=== PATIENT | female | born 2000 | race Caucasian/White ===

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

== ENCOUNTER → 2019-01-12 | Outpatient (CLI) | payer BC, OTHER ==
[2019-01-12 13:21] LABS: HEMATOCRIT 35.8 % (36.0-47.0); HEMOGLOBIN 11.8 g/dl (12.0-15.5); MEAN CORPUSCULAR HEMOGLOBIN 27.3 pg (27.0-33.0); MEAN CORPUSCULAR VOLUME 82.7 fl (80.0-96.0); PLATELET COUNT, AUTOMATED 163 10^3/uL (150-450); RED BLOOD COUNT 4.33 10^6/uL (4.00-5.40)
[2019-01-12 13:56] LABS: ALT/SGPT 20 U/L (12-78); BILIRUBIN,TOTAL 0.3 MG/DL (0.2-1.0); CREATININE FOR GFR 0.46 MG/DL (0.55-1.30); LDH LACTATE DEHYDROGENASE 163 U/L (84-246); URIC ACID 7.1 MG/DL (2.6-6.0)
[2019-01-12 19:08] LABS: TOTAL PROTEIN,RANDOM URINE 40.9 MG/DL (0.0-12.0)
== END ==
LOC: M SMT 10:40
PROVIDERS: ATTEND Specialist
DX: O10.012 Pre-existing essential hypertension complicating pregnancy, second trimester (principal)

== ENCOUNTER 2019-01-28 17:10 | Inpatient (IN) | payer BC, OTHER ==
[2019-01-28] VITALS (18 sets, daily range): BP systolic 118–194; BP diastolic 56–101
[~2019-01-28] VITALS: Ht 170.2 cm; Wt 157.1 kg
[2019-01-28] MEDS ORDERED: ACETAMINOPHEN 500 MG TAB PO ONE (18:15)
[2019-01-28] MEDS ORDERED: NIFEdipine 10 MG CAP PO ONE (18:15)
[2019-01-28] MEDS ORDERED: PRENTAB9 PO (18:33)
[2019-01-28 18:44] LABS: HEMATOCRIT 37.5 % (36.0-47.0); HEMOGLOBIN 12.5 g/dl (12.0-15.5); MEAN CORPUSCULAR HEMOGLOBIN 27.7 pg (27.0-33.0); MEAN CORPUSCULAR HGB CONC 33.3 g/dl (32.0-36.5); PLATELET COUNT, AUTOMATED 196 10^3/uL (150-450); RED BLOOD COUNT 4.52 10^6/uL (4.00-5.40); WHITE BLOOD COUNT 10.8 10^3/uL (4.0-10.0)
[2019-01-28 19:09] LABS: INR 0.98; PROTHROMBIN TIME 13.1 SECONDS (12.1-14.4)
[2019-01-28 19:10] LABS: PARTIAL THROMBOPLASTIN TIME 28.5 SECONDS (25.4-37.6)
[2019-01-28 19:12] LABS: ALBUMIN 2.5 GM/DL (3.2-5.2); ALT/SGPT 12 U/L (12-78); BILIRUBIN,TOTAL 0.3 MG/DL (0.2-1.0); BLOOD UREA NITROGEN 9 MG/DL (7-18); CALCIUM LEVEL 8.7 MG/DL (8.5-10.1); CARBON DIOXIDE LEVEL 23 MEQ/L (21-32); CHLORIDE LEVEL 107 MEQ/L (98-107); CREATININE FOR GFR 0.48 MG/DL (0.55-1.30); GLUCOSE, FASTING 70 MG/DL (70-100); LDH LACTATE DEHYDROGENASE 157 U/L (84-246); POTASSIUM SERUM 4.5 MEQ/L (3.5-5.1); SODIUM LEVEL 139 MEQ/L (136-145); TOTAL PROTEIN 5.9 GM/DL (6.4-8.2); URIC ACID 6.6 MG/DL (2.6-6.0)
[2019-01-28 19:28] LABS: AMPHETAMINES URINE REFLEX NEGATIVE (NEGATIVE); BARBITURATES URINE REFLEX NEGATIVE (NEGATIVE); BENZODIAZEPINES URINE REFLEX NEGATIVE (NEGATIVE); CANNABINOIDS URINE REFLEX NEGATIVE (NEGATIVE); COCAINE METABOLITE URINE REFLE NEGATIVE (NEGATIVE); CREATININE,RANDOM URINE 17.1 MG/DL; METHADONE URINE REFLEX NEGATIVE (NEGATIVE); OPIATES URINE REFLEX NEGATIVE (NEGATIVE); PHENCYCLIDINE URINE REFLEX NEGATIVE (NEGATIVE); TOTAL PROTEIN,RANDOM URINE 70.2 MG/DL (0.0-12.0)
[2019-01-28] MEDS ORDERED: LABETALOL HCL 100 MG/20 ML VIAL IV STA (20:12)
[2019-01-28] MEDS ORDERED: LABETALOL 200 MG TAB PO ONE (20:15)
--- NOTE | 2019-01-28 20:25 | NUR ---
L&D H&P HPI: 18 year old at 32+5 weeks estimated gestation. Expected date of confinement: 03/20/19. dated by first trimester ultrasound. Presents to day with complaint of CLOUD and elevated BP at home. CHTN, but not taking any antihypertensive. Denies scotomata, RUQ pain, sob, cp. Denies vaginal bleeding, loss of fluid, or uterine contractions. Reports regular movement. course c/b: Morbid obesity CHTN (no meds) labs: Blood type Aneg, Rhogam given: 01/20/19, antibody screen : +anti-D, rubella immune, VDRL nonreactive , hepatitis B surface antigen negative, HIV negative, hepatitis C antibody negative, GC/CT negative, aneuploidy/maternal serum screening: not done, 1 hour glucose challenge test: 96, [3 hour glucose tolerance test:] GBS [negative/positive] Radiology/OB US: no anomalies or placental abnormalities detected. 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 G2, term , 7lbs 12oz, Nov 2016 Social history: former smoker. no t/e/d. Family history: seizures, heart disease Objective Vitals: Hypertensive (severe range; see [employer]), normal heart rate, afebrile Heart: Regular rate and rhythm. No murmurs, rubs or gallops. Lungs: Clear to auscultation bilaterally. No wheezes, crackles, rales or rhonchi. Abdomen: Uterine fundal height consistent with dates. No guarding or rebound tenderness. Extremities: No clubbing, cyanosis or edema. Normal deep tendon reflexes. Sterile vaginal exam: deferred External monitoring: heart rate category 1 Tocodynamometer: contractions not present Assessment/Plan 18 year old at 32+5 weeks gestation. Diagnosis: CHTN w/ superimposed pre-e. Reassuring and maternal status. -Close observation for severe features -Start antihypertensive therapy; Nifedipine 10mg PO and IV labetalol for acute control, followed by PO Labetalol -Start betamethasone course for anticipated delivery becoming indicated -Mg SO4 if pt's clinical status worsens. -EFM / [place] -Labs ordered (Pr/Cr ratio, CBC, CMP, uric acid, LDH, coags) Dr. Irineo Gonzalez, DO, FACOG
[2019-01-28] MEDS: BETAMETHASONE SOLUSPAN 6MG/ML INJ 5ML (J0702) IM SCH (20:44)
[2019-01-29] VITALS (20 sets, daily range): BP systolic 121–170; BP diastolic 57–85
[2019-01-29] MEDS: LABETALOL 200 MG TAB PO SCH ×2 (09:01→20:59)
--- NOTE | 2019-01-29 14:02 | IPNPDOC ---
Text Note Date of Service The patient was seen on 01/29/19. NOTE No complaints. BP well controlled on labetalol 200mg BID NST Cat I, difficult to trace due to activity and maternal habitus Pt status reviewed with Dr Vasques. Repeat betamethasone injection this evening. If remains well controlled on PO meds, discharge in am VS,Fishbone, I+O VS, Fishbone, I+O Laboratory Tests 01/28/19 18:34 Red Blood Count 4.52, Mean Corpuscular Volume 83.0, Mean Corpuscular Hemoglobin 27.7, Mean Corpuscular Hemoglobin Concent 33.3, Red Cell Distribution Width 13.5, Calcium Level 8.7, Aspartate Amino Transf (AST/SGOT) 10, Alanine Aminotransferase (ALT/SGPT) 12, Lactate Dehydrogenase 157, Alkaline Phosphatase 155 H, Total Bilirubin 0.3, Uric Acid 6.6 H, Total Protein 5.9 L, Albumin 2.5 L Vital Signs Date Time Temp Pulse Resp B/P (MAP) Pulse Ox O2 Delivery O2 Flow Rate FiO2 01/29/19 12:01 98.6 85 18 145/72 (96) Anabel Rojas CNM Jan 29, 2019 14:02
[2019-01-29] MEDS ORDERED: SODIUM CHLORIDE NASAL 0.65% SPRAY BTL (OCEAN) PRN (20:15)
[2019-01-29] MEDS: BETAMETHASONE SOLUSPAN 6MG/ML INJ 5ML (J0702) IM SCH (20:57)
[2019-01-29] MEDS: OXYMETAZOLINE NASAL SPRAY (AFRIN) SCH (21:00)
[2019-01-30] VITALS (13 sets, daily range): BP systolic 136–181; BP diastolic 65–102
--- NOTE | 2019-01-30 08:22 | NUR ---
Progress note S: No complaints O: SK=568/66 P=75 AF NAD Abd: NT, gravid FHT: Cat. .I [place]: rare ext: NT, 1+ edema A/P 18 yo at 33 0/7 weeks with preeclampsia Stable on Labetalol 200 mg po BID Check ultrasound today for growth/TWILA GBS culture today in anticipation of early delivery If reassuring testing today, can discharge home with close follow-up Bari Vasques MD
[2019-01-30] MEDS: LABETALOL 200 MG TAB PO SCH (09:33)
--- NOTE | 2019-01-30 10:46 | REP ---
OB ULTRASOUND: Real-time sonographic evaluation of the gravid uterus is performed. There is a single living intrauterine gestation. The estimated gestational age is 33 weeks 6 days based on LMP EDC 03/21/2019. Today's measurements indicate somewhat suboptimal growth. BPD 75 mm = 30 weeks 1 day, at the 10th percentile. HC 281 mm = 30 weeks 6 days, at the 19th percentile. AC 264 mm = 30 weeks 4 day, at the 15th percentile. Femur length 59 mm = 30 weeks 5 days, at the 17th percentile. HC/AC ratio 1.06 within normal range. Estimated weight 1599 grams, less than 3rd percentile. Cervix is closed and measures 3.5 cm in length. heart rate 139 beats per minute. Amniotic fluid appears oligohydramnios with TWILA 4.6 below normal range of 8.3 to 24.5, SD ratio 3.51 is above normal range of 2.05-3.05. RI 0.72 is within normal range of 0.59 to 0.75. Visualized anatomy today includes stomach, cord insertion, three vessel cord, kidneys, bladder, and spine which are all grossly unremarkable. position is vertex. Placenta is anterior and to the right, grade 3 with no evidence of previa or abruption. A portion of the placenta appears mildly thickened at 4.6 cm in AP dimension. motion and breathing are observed. Electronically Signed by Dontae Zepeda MD 01/30/2019 06:55 P
[2019-01-30] MEDS: OXYMETAZOLINE NASAL SPRAY (AFRIN) SCH (21:00)
[2019-01-30] MEDS ORDERED: LABETALOL 100 MG TAB PO SCH (21:00)
[2019-01-31] VITALS (7 sets, daily range): BP systolic 139–171; BP diastolic 67–87
[2019-01-31] MEDS: OXYMETAZOLINE NASAL SPRAY (AFRIN) SCH ×2 (09:00→21:16)
[2019-01-31] MEDS: LABETALOL 200 MG TAB PO SCH ×2 (09:06→21:19)
--- NOTE | 2019-01-31 09:42 | NUR ---
Progress note S: c/o heart burn O: BH=009/76 P=86 AF NAD Abd: NT, gravid FHT: Category one toco: none Ext: 1+ edema LE A/P 18 yo at 33 1/7 weeks with preeclampsia, IUGR, oligohydramnios Labetalol increased to 400 mg BID Continue in hospital bed rest Plan delivery at 34 weeks for the above indications Can deliver earlier for worsening disease or signs of compromise Try Pepcid for heartburn Bari Vasques MD
[2019-01-31] MEDS: FAMOTIDINE 20 MG TAB PO SCH ×2 (09:45→21:16)
[2019-02-01] VITALS (31 sets, daily range): BP systolic 124–194; BP diastolic 59–104
--- NOTE | 2019-02-01 06:28 | NUR ---
Progress note S: no complaints O: JJ=452/84 P=78 AF NAD Abd: NT, gravid FHT: Category one toco: none ext: NT, 1+ edema A/P 18 yo G2P@ at 33 2/7 weeks with preeclampsia, IUGR, oligohydramnios Continue in hospital bedrest Increase Labetalol (currently at 400 mg BID) Will discuss senior care goals today for delivery Bari Vasques MD
[2019-02-01] MEDS: OXYMETAZOLINE NASAL SPRAY (AFRIN) SCH ×2 (09:00→21:00)
[2019-02-01] MEDS: FAMOTIDINE 20 MG TAB PO SCH ×2 (09:11→21:12)
[2019-02-01] MEDS: LABETALOL 200 MG TAB PO SCH ×3 (09:11→21:12)
[2019-02-01] MEDS: PRENATAL VITAMINS CHEWABLE TABLET PO SCH (09:11)
[2019-02-01 10:44] LABS: RUBELLA IgG QUALITATIVE IMMUNE (IMMUNE)
[2019-02-01 10:45] LABS: HEMATOCRIT 37.6 % (36.0-47.0); HEMOGLOBIN 12.1 g/dl (12.0-15.5); MEAN CORPUSCULAR HEMOGLOBIN 27.1 pg (27.0-33.0); MEAN CORPUSCULAR HGB CONC 32.2 g/dl (32.0-36.5); MEAN CORPUSCULAR VOLUME 84.3 fl (80.0-96.0); PLATELET COUNT, AUTOMATED 199 10^3/uL (150-450); RED BLOOD COUNT 4.46 10^6/uL (4.00-5.40); WHITE BLOOD COUNT 15.3 10^3/uL (4.0-10.0)
[2019-02-01 11:09] LABS: ALT/SGPT 12 U/L (12-78); BILIRUBIN,TOTAL 0.3 MG/DL (0.2-1.0); LDH LACTATE DEHYDROGENASE 156 U/L (84-246); URIC ACID 6.6 MG/DL (2.6-6.0)
[2019-02-01] MEDS ORDERED: BICITRA 30ML SOLN UDC PO ONE (11:45)
[2019-02-01] MEDS: ACETAMINOPHEN 500 MG TAB PO PRN ×2 (11:45→21:27)
[2019-02-01] MEDS ORDERED: hydrALAZINE INJ 20 MG/ML VIAL IV STA ×2 (13:36→14:10)
--- NOTE | 2019-02-01 13:53 | IPNPDOC ---
Text Note Date of Service The patient was seen on 02/01/19. NOTE Subjective: Patient is a at 33.1 weeks gestation. She reported having a headache this morning that was resolved with acetaminophen and increased epigastric pain that is no longer controlled with Pepcid or tums. She was given Bicitra this morning that did not improve her heartburn. Patient was placed on Labetalol 400 mg TID this weekend. She reports active movement. She denies leaking of fluid or contractions. Objective: Labs and VS: see below. Assessment: IUP at 33.1 weeks gestation; preeclampsia with severe features; oligohydramnios; IUGR Plan: Dr. Gonzalez consulted. BP's reviewed and symptoms reviewed. Plan of care obtained for patient. Will start IOL due to severe features, oligohydramnios, IUGR and increasing BP's. Dr. Muñoz (electronic sensing equipment assembler) notified of patient being induced. Hydralazine ordered via IV. Will consider Magnesium for seizure prote ction if BP's don't improve or headache occurs. Plan of care reviewed with patient. VS,Fishbone, I+O VS, Fishbone, I+O Laboratory Tests 02/01/19 10:35 Red Blood Count 4.46, Mean Corpuscular Volume 84.3, Mean Corpuscular Hemoglobin 27.1, Mean Corpuscular Hemoglobin Concent 32.2, Red Cell Distribution Width 14.0, Aspartate Amino Transf (AST/SGOT) 9, Alanine Aminotransferase (ALT/SGPT) 12, Lactate Dehydrogenase 156, Total Bilirubin 0.3, Uric Acid 6.6 H Vital Signs Date Time Temp Pulse Resp B/P (MAP) Pulse Ox O2 Delivery O2 Flow Rate FiO2 02/01/19 12:45 85 18 186/104 (131) 02/01/19 10:00 96.5 01/31/19 21:15 97 I&O- Last 24 Hours up to 6 AM 02/01/19 06:00 Intake Total 3749 ml Output Total 2150 ml Balance 1599 ml NIKKI HARMON CNM Feb 01, 2019 13:53
[2019-02-01] MEDS ORDERED: MAG Sulf (OBGYN) 20GM/500ML 20,000 MG in APPROPRIATE DILUENT 1 EA IV SCH (14:00)
[2019-02-01] MEDS ORDERED: MAGNESIUM *L&D* 4 GM/100 ML BAG (40MG/ML) (J3475) IV ONE (14:15)
[2019-02-01] MEDS ORDERED: OXYTOCIN DRIP 30 UNITS in APPROPRIATE DILUENT 1 EA IV SCH (15:30)
[2019-02-01] MEDS: LR 1,000 ML IV SCH (16:05)
--- NOTE | 2019-02-01 19:26 | IPNPDOC ---
Obstetrical Progress Note Date of Service Feb 01, 2019 Subjective Patient reports that her epigastric pain has improved since the Magnesium has started. She currently denies a headache or visual changes. Objective Vital Signs Date Time Temp Pulse Resp B/P (MAP) Pulse Ox O2 Delivery O2 Flow Rate FiO2 02/01/19 18:38 82 18 141/82 (101) 02/01/19 17:08 98.6 01/31/19 21:15 97 Vital Signs Label Value Date Time Pulse 85 02/01/19 1245 Respiratory Rate 18 bpm 02/01/19 1245 Blood Pressure Assessment 186/104 (131) 02/01/19 1245 Source Automatic Cuff (NIBP) Pulse 81 02/01/19 1315 Blood Pressure Assessment 194/92 (126) 02/01/19 1315 Source Automatic Cuff (NIBP) Pulse 95 02/01/19 1416 Respiratory Rate 18 bpm 02/01/19 1416 Blood Pressure Assessment 166/77 (106) 02/01/19 1416 Source Automatic Cuff (NIBP) Pulse 92 02/01/19 1421 Respiratory Rate 18 bpm 02/01/19 1421 Blood Pressure Assessment 171/79 (109) 02/01/19 1421 Source Automatic Cuff (NIBP) Pulse 90 02/01/19 1426 Respiratory Rate 18 bpm 02/01/19 1426 Blood Pressure Assessment 159/73 (101) 02/01/19 1426 Source Automatic Cuff (NIBP) Assessment Heart Rate (FHR): 120 Variability: Moderate Accelerations: Positive Decelerations: None Heart Rate Tracing: Category I Tocometer Contractions: No Sterile Vaginal Examination Dilation: 1cm Effacement (%): other (thick) Station: -3 Cervical Consistency: Soft Cervical Position: Posterior Postion/Presentation: Cephalic presentation Assessment and Plan Age: 18 : 2 Term: 1 Pre-term: 0 Abortions: 0 Livin EGA at Admission: 33.2 Additional Comments Patient was given a second dose of hydralazine that worked well to decrease her BP. After consulting with again she was started on Magnesium sulfate. Reviewed induction process with patient. Sono confirms cephalic presentation, which was done at the bedside. We will start her on IV Pitocin due to oligohydramnios and IUGR. Consider mad[place] bulb. NIKKI HARMON CNM Feb 01, 2019 19:26
--- NOTE | 2019-02-01 20:06 | IPNPDOC ---
Obstetrical Progress Note Date of Service Feb 01, 2019 Subjective Patient reports she can feel some of her contractions. Objective Vital Signs Date Time Temp Pulse Resp B/P (MAP) Pulse Ox O2 Delivery O2 Flow Rate FiO2 02/01/19 18:38 82 18 141/82 (101) 02/01/19 17:08 98.6 01/31/19 21:15 97 Assessment Heart Rate (FHR): 120 Variability: Moderate Accelerations: Positive Decelerations: None Heart Rate Tracing: Category I Tocometer Contractions: Yes Sterile Vaginal Examination Dilation: 1cm Effacement (%): 50% Station: -3 Cervical Consistency: Soft Cervical Position: Posterior Postion/Presentation: Cephalic presentation Assessment and Plan Age: 18 : 3 Term: 1 Pre-term: 0 Abortions: 1 Livin EGA at Admission: 33.2 Status: Reassuring Group B Streptococcus: Negative Anticipate: Vaginal Delivery Additional Comments Speculum used to place madrid bulb. [place] bulb successfully placed with 60/40 of normal saline. Patient tolerated well. Pitocin at 12 mu/min. Patient reports she can feel some contractions. NIKKI HARMON CNM Feb 01, 2019 20:06
[2019-02-01] MEDS ORDERED: PROMETHAZINE INJ 25 MG/ML VIAL (J2550) IV ONE (21:30)
[2019-02-01] MEDS ORDERED: BUTORPHANOL 2 MG/ML INJ (J0595) IV ONE (21:30)
[2019-02-02] VITALS (56 sets, daily range): BP systolic 107–178; BP diastolic 53–90
[2019-02-02] MEDS: LR 1,000 ML IV SCH ×2 (03:11→10:21)
[2019-02-02] MEDS: MAG Sulf (OBGYN) 20GM/500ML 20,000 MG in APPROPRIATE DILUENT 1 EA IV SCH ×3 (07:00→20:46)
[2019-02-02] MEDS: PRENATAL VITAMINS CHEWABLE TABLET PO SCH ×2 (07:41→07:44)
[2019-02-02] MEDS: FAMOTIDINE 20 MG TAB PO SCH ×2 (07:41→20:52)
[2019-02-02] MEDS: ACETAMINOPHEN 500 MG TAB PO PRN ×2 (07:42→18:37)
[2019-02-02] MEDS: OXYMETAZOLINE NASAL SPRAY (AFRIN) SCH ×2 (09:00→20:53)
[2019-02-02] MEDS ORDERED: FENTANYL 2MCG/ML ROPIVACAINE 0.2% IN 0.9% NACL 100ML IVBAG As Ordered ONE (10:14)
[2019-02-02 11:01] LABS: HEMATOCRIT 38.4 % (36.0-47.0); HEMOGLOBIN 12.4 g/dl (12.0-15.5); MEAN CORPUSCULAR HEMOGLOBIN 27.3 pg (27.0-33.0); MEAN CORPUSCULAR HGB CONC 32.3 g/dl (32.0-36.5); MEAN CORPUSCULAR VOLUME 84.6 fl (80.0-96.0); PLATELET COUNT, AUTOMATED 197 10^3/uL (150-450); RED BLOOD COUNT 4.54 10^6/uL (4.00-5.40); WHITE BLOOD COUNT 14.8 10^3/uL (4.0-10.0)
[2019-02-02] MEDS ORDERED: LACTATED RINGER'S 1000 ML IV PRN (12:45)
[2019-02-02] MEDS ORDERED: NALOXONE INJ 0.4 MG/1 ML VIAL (J2310) IV PRN (12:45)
[2019-02-02] MEDS ORDERED: EPIDURAL/PCA KEYS XX PRN (12:45)
[2019-02-02] MEDS ORDERED: diphenhydrAMINE INJ 50MG/ML VIAL (J1200) IV PRN (12:45)
[2019-02-02] MEDS ORDERED: REFRIGERATOR IV KEYS XX PRN (12:45)
[2019-02-02] MEDS ORDERED: ePHEDrine SULFATE 25 MG/5 ML(5MG/ML) SYRINGE IV PRN (12:45)
[2019-02-02] MEDS ORDERED: FENTANYL/ROPIVACAINE/NACL BAG 100 ML EPIDURAL SCH (12:45)
[2019-02-02] MEDS ORDERED: ONDANSETRON 4MG/2ML VIAL (J2405) IV PRN (12:45)
[2019-02-02] MEDS ORDERED: EPIDURAL COMMENT XX SCH (12:45)
--- NOTE | 2019-02-02 14:23 | NUR ---
Progress Note Pt comfortable with epidural. Currently without CLOUD, visual changes, RUQ pain, sob, cp. Currently normotensive SVE: /-3; AROM, clear EFM: Cat I --> FSE placed. Cat I IUPC placed. Pit at 10mU/min, ctxs q 2-4min A/P: AROM, clear. Approaching active phase of labor. -Continue Pitocin and Mag sulfate -Repeat SVE in 2-4 hours or sooner PRN. Gill Gonzalez, DO
--- NOTE | 2019-02-02 21:55 | NUR ---
Progress Note Pt comfortable with epidural. Denies feeling rectovaginal pressure. Denies CLOUD, visual changes, RUQ pain, sob, cp. VSS,afebrile, currently normotensive. SVE: unchanged, /-2, clear fluid FSE: Cat I IUPC: ctxs every 3-4min; adequate MVU's A/P: Protracted labor. Reassuring status. Maternal status has stabilized. -D/c Mag sulfate; restart if maternal status worsens. -Continue Cari Gonzalez, DO
[2019-02-02] MEDS ORDERED: OXYTOCIN DRIP 30 UNITS in APPROPRIATE DILUENT 1 EA IV SCH (22:15)
[2019-02-03] VITALS (10 sets, daily range): BP systolic 130–170; BP diastolic 60–86
[2019-02-03] MEDS ORDERED: ceFAZolin 2 GM/D5W 50 ML IV BAG (J0690 PER 500MG) As Ordered ONE (01:44)
[2019-02-03] MEDS ORDERED: AZITHROMYCIN INJ 500 MG, VIAL MATE ADAPTER 1 EACH in D5W 250 ML IV ONE (01:45)
[2019-02-03] MEDS ORDERED: BICITRA 30ML SOLN UDC PO ONE (01:45)
--- NOTE | 2019-02-03 01:47 | NUR ---
Progress Note Pt comfortable with epidural. No CLOUD, visual changes, RUQ pain, sob, cp. mild HTN, afebrile SVE: unchanged; /-3 FSE: Cat II IUPC: Adequate MVU's; Pit shut off secondary to Cat II FHR A/P: Arrest of dilation, Non-reassuring FHR. -Recommended PLTCS -Anesthesia and Peds / NICU notified. -Preparations for OR being made. -Informed consent obtained. Gill Gonzalez DO.
[2019-02-03] MEDS ORDERED: OXYTOCIN INJ 10 UNITS/ML VIAL (J2590) As Ordered ONE (02:05)
[2019-02-03] MEDS ORDERED: LIDOCAINE 2% W/EPIN INJ 20ML **PRES FREE As Ordered ONE (02:07)
[2019-02-03] MEDS ORDERED: MORPHINE PRES-FREE INJ 10 MG/10 ML VIAL (J2274) As Ordered ONE (02:28)
[2019-02-03] MEDS ORDERED: dexameTHASONE 4 MG/ML 1ML VIAL (J1100) As Ordered ONE (02:30)
[2019-02-03] MEDS ORDERED: ONDANSETRON 4MG/2ML VIAL (J2405) As Ordered ONE (02:30)
[2019-02-03] MEDS ORDERED: KETOROLAC 60 MG/2 ML VIAL (J1885) As Ordered ONE (02:30)
[2019-02-03 03:16] LABS: CORD GAS ABE A -3.8; CORD GAS ABE V -5.1; CORD GAS HCO3 A 23.3 MEQ/L; CORD GAS O2 SAT A 55.5 %; CORD GAS O2 SAT V 54.7 %; CORD GAS PCO2 A 48.9 mmHg; CORD GAS PCO2 V 42.8 mmHg; CORD GAS PH A 7.295 UNITS; CORD GAS PH V 7.309 UNITS; CORD GAS PO2 A 27.2 mmHg; CORD GAS PO2 V 26.4 mmHg; CORD GAS SBC A 20.1 MEQ/L; CORD GAS SBC V 19.1 MEQ/L; CORD GAS TCO2 A 24.8 MEQ/L; CORD GAS TCO2 V 22.3 MEQ/L
[2019-02-03] MEDS ORDERED: OXYTOCIN DRIP 30 UNITS in APPROPRIATE DILUENT 1 EA IV SCH (03:29)
[2019-02-03] MEDS ORDERED: LR 1,000 ML IV SCH ×2 (03:29→04:15)
[2019-02-03] MEDS ORDERED: NS 1,000 ML IV SCH ×2 (03:29→11:30)
[2019-02-03] MEDS ORDERED: PROMETHAZINE 25 MG TAB PO PRN (03:30)
[2019-02-03] MEDS ORDERED: NALOXONE INJ 0.4 MG/1 ML VIAL (J2310) IV PRN (03:30)
[2019-02-03] MEDS ORDERED: EPIDURAL/PCA KEYS XX PRN (03:30)
[2019-02-03] MEDS ORDERED: diphenhydrAMINE INJ 50MG/ML VIAL (J1200) IV PRN (03:30)
[2019-02-03] MEDS ORDERED: ONDANSETRON 4MG/2ML VIAL (J2405) IV PRN ×3 (03:30→04:15)
[2019-02-03] MEDS ORDERED: RHOGAM 300 MCG (1500 IU) INJ (J2790) IM SCH (03:30)
[2019-02-03] MEDS ORDERED: NALBUPHINE HCL 10 MG/ML AMP (J2300) IV PRN ×2 (03:30→04:15)
[2019-02-03] MEDS ORDERED: MORPHINE 1MG/ML IN 0.9% NACL 100ML IV BAG IV PRN (03:30)
[2019-02-03] MEDS ORDERED: MEASLES,MUMPS,RUBELLA VACCINE INJ (MMR-II) (90707) SC SCH (03:30)
[2019-02-03] MEDS ORDERED: METOCLOPRAMIDE INJ 10MG/2ML VIAL (J2765) IV PRN (04:15)
[2019-02-03] MEDS ORDERED: fentaNYL 100 MCG/2 ML INJECTION (J3010) IV PRN (04:15)
[2019-02-03] MEDS ORDERED: KETOROLAC 30 MG/ML VIAL (J1885) IV PRN (04:15)
[2019-02-03] MEDS ORDERED: fentaNYL 100 MCG/2 ML INJECTION (J3010) As Ordered ONE (04:26)
--- NOTE | 2019-02-03 04:28 | NUR ---
Operative Note Date of procedure: 02/03/2019 Procedure: Primary low-transverse section Anesthesia: Epidural Preoperative diagnoses: 1. Severe preeclampsia at 33+4, with growth restriction 2. Morbid obesity 3. Nonreassuring heart rate tracing 4. Arrest of dilation at 5 cm Postoperative diagnoses: Same as preoperative diagnoses Indication: Nonreassuring heart rate tracing during induction of labor. Induction of labor also complicated for arrest of dilation at 5 cm. Primary surgeon: Irineo Gonzalez D.O., F. A.AlexOKarmaG. Apprentice Machinist Outside: Miller Elizabeth MD (essential role in surgical site exposure and assistance with delivery through the hysterotomy) Estimated blood loss:500 ml IV fluids administered: 1L crystalloid Drains: Padilla catheter. Urine output: 100 ml data: Apgars 3 and 9. Birthweight 1420g, 3lbs 2oz. See [employer] for cord gases. Preoperative/prophylactic antibiotics: Ancef 2 g IV (given within 30 minutes prior to surgical start time). Intraoperative findings: asynclitic cephalic presentation with tight nuchal cord. Normal uterus and bilateral adnexa. Specimen(s): none Procedure: The patient was counseled and consented on the risks, benefits, indications and alternatives of the procedure. Informed consent was obtained and placed in the c olson. She was taken to the operating room with an IV running. She was placed on the operating table. Epidural anesthesia was found to be adequate. She was placed in the dorsal supine position with a leftward tilt. Sequential compression devices were placed on the lower extremities. A Padilla catheter had been placed under sterile conditions. She was sterilely prepped and draped. A surgical timeout was performed per protocol. Epidural anesthesia was again found to be adequate. Using the 10 blade a Pfannenstiel incision was performed. The 10 blade was used to dissect down to the level of the rectus sheath fascia. The rectus sheath fas arlet was incised at the midline, and the fascial incision was extended with Yoder scissors. Baldomero clamps were used to grasp the superior and inferior aspect of the fascial incision and the rectus muscle bellies were dissected off sharply and bluntly. The midline was identified and the rectus muscle bellies were manually . The peritoneum was identified and clamped with hemostats and elevated. The peritoneum was then incised with Metzenbaum scissor s. Entry into the intraperitoneal cavity was achieved. The peritoneal opening was extended with manual stretch . There was good visualization of both the bladder and the lower uterine segment. The Mobius retractor was placed. The vesicouterine peritoneum was dissected with Metzenbaum scissors and blunt dissection. A low transverse uterine incision was made with a new 10 blade. The hysterotomy was extended with manual stretch. The amniotic sac was protruding and then artificially ruptured. Clear amniotic fluid was noted. The baby's head delivered through the hysterotomy with ease. The remainder of the body delivered with ease. The cord was doubly clamped and cut and the baby was handed off to awaiting care. See data above. Cord blood was obtained. Cord gases were obtained. The placenta was manually removed and noted to be fully intact. The uterus was kept in situ. The intrauterine cavity was cleared of all clot and debris with a laparotomy sponge. The hysterotomy was closed with 0 Vicryl in running, locked fashion. A second imbricating closure was performed over the initial layer closure using 0 Vicryl. The hysterotomy was noted to be hemostatic. The posterior cul-de-sac was irrigated and cleared of all clot and debris. The paracolic gutters were cleared of all clot and debris with damp laparotomy sponges. The hysterotomy is reinspected and noted to be hemostatic. Sponge, needle and instrument counts were correct. The peritoneum was closed with 3-0 Vicryl in running fashion. The rectus muscle bellies were reapproximated with 3-0 Vicryl with a series of interrupted sutures. The rectus muscle bellies were noted to be hemostatic. The fascia was closed with 0 Vicryl in running fashion. Sponge, needle and instrument counts were again correct. The subcutaneous layer was irrigated. Small subcutaneous bleeders were cauterized with Bovie. The subcutaneous layer was reapproximated with 3-0 Vicryl in running fashion. The skin was closed with 3-0 Monocryl in subcuticular fashion. A bandage was placed over the closed incision. The final sponge, instrument and needle count was correct. She tolerated the entire procedure very well. She was transferred to the PACU in good and stable condition. Dr. Irineo Gonzalez D.O., F.A.C.O.G
[2019-02-03] MEDS ORDERED: LABETALOL HCL 100 MG/20 ML VIAL IV STA (05:27)
[2019-02-03] MEDS ORDERED: LABETALOL HCL 100 MG/20 ML VIAL As Ordered ONE (05:29)
[2019-02-03] MEDS: KETOROLAC 30 MG/ML VIAL (J1885) IV SCH ×3 (09:08→20:24)
[2019-02-03] MEDS: PRENATAL VITAMINS CHEWABLE TABLET PO SCH (09:09)
[2019-02-03] MEDS: DOCUSATE SODIUM 100 MG CAP PO SCH ×2 (09:10→20:23)
[2019-02-03] MEDS: LABETALOL 200 MG TAB PO SCH ×2 (15:24→22:11)
[2019-02-04] VITALS (7 sets, daily range): BP systolic 128–165; BP diastolic 57–81
[2019-02-04] MEDS: IBUPROFEN 800 MG TAB PO SCH ×3 (05:37→21:05)
[2019-02-04] MEDS: LABETALOL 200 MG TAB PO SCH ×3 (05:38→21:04)
[2019-02-04] MEDS ORDERED: PERCOCET 5MG/325MG TAB PO PRN ×2 (07:45)
[2019-02-04 08:05] LABS: HEMATOCRIT 29.6 % (36.0-47.0); HEMOGLOBIN 9.4 g/dl (12.0-15.5); MEAN CORPUSCULAR HEMOGLOBIN 26.6 pg (27.0-33.0); MEAN CORPUSCULAR HGB CONC 31.8 g/dl (32.0-36.5); MEAN CORPUSCULAR VOLUME 83.9 fl (80.0-96.0); PLATELET COUNT, AUTOMATED 167 10^3/uL (150-450); RED BLOOD COUNT 3.53 10^6/uL (4.00-5.40); WHITE BLOOD COUNT 12.2 10^3/uL (4.0-10.0)
[2019-02-04] MEDS: PRENATAL VITAMINS CHEWABLE TABLET PO SCH (08:37)
[2019-02-04] MEDS: DOCUSATE SODIUM 100 MG CAP PO SCH ×2 (08:37→21:04)
[2019-02-05 02:00] VITALS: BP 146/72
[2019-02-05] MEDS: IBUPROFEN 800 MG TAB PO SCH ×3 (05:27→20:59)
[2019-02-05] MEDS: LABETALOL 200 MG TAB PO SCH ×3 (05:31→20:58)
[2019-02-05 06:00] VITALS: BP 147/79
[2019-02-05] MEDS: PRENATAL VITAMINS CHEWABLE TABLET PO SCH (09:08)
[2019-02-05] MEDS: DOCUSATE SODIUM 100 MG CAP PO SCH ×2 (09:09→20:58)
[2019-02-05 18:47] VITALS: BP 134/89
[2019-02-06] MEDS: IBUPROFEN 800 MG TAB PO SCH (05:07)
[2019-02-06 05:08] VITALS: BP 138/87
[2019-02-06] MEDS: LABETALOL 200 MG TAB PO SCH (05:08)
[2019-02-06] MEDS ORDERED: PERCOCET PO (07:25)
[2019-02-06] MEDS ORDERED: IBUP80TA PO (07:25)
[2019-02-06] MEDS ORDERED: LABE20TAB PO (07:25)
[2019-02-06] MEDS ORDERED: SERT25TA PO (07:25)
--- NOTE | 2019-02-06 07:37 | DS.PDOC ---
Discharge Summary General Date of Admission Jan 30, 2019 at 14:50 Date of Discharge 02/06/19 Discharge Summary PROCEDURES PERFORMED DURING STAY: Primary section. ADMITTING DIAGNOSES: 1. CHronic hypertension 2. Superimposed preeclampsia DISCHARGE DIAGNOSES: 1. Chronic hypertension 2. Superimposed preeclampsia 3. Primary section for arrest of dilation COMPLICATIONS/CHIEF COMPLAINT: R/O Preeclampsia. HISTORY OF PRESENT ILLNESS: 18 yo G3 now [id number] admitted 01/30 for induction of labor due to chronic hypertension with superimposed preeclampsia with severe features. A primary section was performed 02/03/19 for arrest of dilation and nonreassuring heart rate. HOSPITAL COURSE: Blood pressure adequately controlled on oral antihypertensives. DISCHARGE MEDICATIONS: Please see below. ALLERGIES: Please see below. PHYSICAL EXAMINATION ON DISCHARGE: VITAL SIGNS: Please see below. GENERAL: WNL HEENT: WNL NECK: Supple CARDIOVASCULAR EXAMINATION: BP max 140's/70's, regular rate and rhythm RESPIRATORY EXAMINATION: Unlabored ABDOMINAL EXAMINATION: Obese. Dressing intact with old drainage EXTREMITIES: Equal strength and motion SKIN: Intact NEUROLOGICAL EXAMINATION: Grossly intact PSYCHIATRIC EXAMINATION: Reports generalized feelings of sadness LABORATORY DATA: Please see below PROGNOSIS: Good ACTIVITY: As tolerated DIET: Regular DISCHARGE PLAN: Home today. Continue labetalol 200mg Q8H. Start zoloft 25mg. Continue PNV, tylenol, ibuprofen, percocet prn for pain. Routine precautions. RTO 1 wk and 6 wks DISPOSITION: . DISCHARGE INSTRUCTIONS: 1. Pelvic rest 2. Continue labetalol 200mg Q 8H, start zoloft as ordered. 3. RTO 1wk and 6 wks DISCHARGE CONDITION: Stable Vital Signs/I&Os Vital Signs Date Time Temp Pulse Resp B/P (MAP) Pulse Ox O2 Delivery O2 Flow Rate FiO2 02/06/19 05:08 82 138/87 02/05/19 18:47 96.9 18 02/04/19 14:00 98 02/03/19 16:00 Room Air Microbiology Microbiology 01/30/19 Group B Streptococcus Screen (MICHELLE) - Final, Complete Discharge Medications Scheduled Labetalol HCl (Labetalol HCl) 200 Mg Tab, 200 MG PO Q8H Multivitamins/ ( 27-0.8 mg) 1 Tab Tab, 1 TAB PO DAILY, (Reported) Sertraline Hcl (Sertraline HCl) 25 Mg Tab, 25 MG PO DAILY Scheduled PRN Ibuprofen (Ibuprofen) 800 Mg Tab, 800 MG PO Q8HP PRN for PAIN SCALE 1-5 Oxycodone/Acetaminophen (Percocet 5MG/325MG Tablet) 1 Tab Tab, 1 TAB PO Q4HP PRN for MILD/MODERATE PAIN (PS 1-7) Allergies Coded Allergies: No Known Allergies (Unverified , 01/28/19) Anabel Rojas CNM Feb 06, 2019 07:37
[2019-02-06] MEDS ORDERED: SERTRALINE HCL 25 MG TABLET PO SCH (09:00)
[2019-02-06] MEDS: PRENATAL VITAMINS CHEWABLE TABLET PO SCH (09:24)
[2019-02-06] MEDS: DOCUSATE SODIUM 100 MG CAP PO SCH (09:24)
== END 2019-02-06 11:30 | disposition home or self-care (01) | DRG 540 ==
LOC: M LDO 17:10 → M LDI 01-30 14:50 → M OBS 01-30 18:04 → M LDI 02-01 13:46 → M PCU 02-03 06:35 → M OBS 02-03 16:22
PROVIDERS: ADMIT Specialist; ATTEND Obstetrics & Gynecology
PROC: 3E033VJ Introduction of Other Hormone into Peripheral Vein, Percutaneous Approach (ICD-10-PCS; 2019-02-01)
PROC: 10D00Z1 Extraction of Products of Conception, Low, Open Approach (ICD-10-PCS; principal; 2019-02-03 02:11)
DX: O14.14 Severe pre-eclampsia complicating childbirth (principal); O41.03X0 Oligohydramnios, third trimester, not applicable or unspecified; Z37.0 Single live birth; Z3A.33 33 weeks gestation of pregnancy; O62.0 Primary inadequate contractions; O76 Abnormality in fetal heart rate and rhythm complicating labor and delivery

== ENCOUNTER → 2019-04-13 | Outpatient (REF) | payer OTHER ==
[~2019-04-13] MED LIST: IBUP80TA PO; LABE20TAB PO; PERCOCET PO; PRENTAB9 PO; SERT25TA85 PO
[2019-04-13 21:16] LABS: CHLAMYDIA DNA AMPLIFICATION NEGATIVE (NEGATIVE); GC DNA AMPLIFICATION NEGATIVE (NEGATIVE)
== END ==
LOC: M LAB REF 15:17
PROVIDERS: ATTEND Obstetrics & Gynecology
DX: D26.0 Other benign neoplasm of cervix uteri (principal)

== ENCOUNTER 2021-06-09 09:33 | Emergency (ER) | payer BC, OTHER ==
[~2021-06-09] VITALS: Ht 170.2 cm; Wt 128.9 kg
[2021-06-09 10:20] LABS: BASO % 0.5 % (0.0-1.0); EOS # 0.2 10^3/uL (0.0-0.5); HEMATOCRIT 40.8 % (36.0-47.0); HEMOGLOBIN 13.2 g/dl (12.0-15.5); LYMPH # 1.6 10^3/uL (1.5-5.0); MEAN CORPUSCULAR HEMOGLOBIN 27.2 pg (27.0-33.0); MEAN CORPUSCULAR HGB CONC 32.4 g/dl (32.0-36.5); MONO # 0.7 10^3/uL (0.0-0.8); MONO % 9.3 % (2.0-8.0); NEUTROPHILS # 4.7 10^3/uL (1.5-8.5); NEUTROPHILS % 64.2 % (36.0-66.0); PLATELET COUNT, AUTOMATED 216 10^3/uL (150-450); RED BLOOD COUNT 4.86 10^6/uL (4.00-5.40); WHITE BLOOD COUNT 7.3 10^3/uL (4.0-10.0)
[2021-06-09] MEDS ORDERED: RHOGAM 300 MCG (1500 IU) INJ (J2790) IM ONE (11:25)
[2021-06-09 11:42] LABS: APPEARANCE, URINE HAZY (CLEAR); BACTERIA, URINE AUTO 1+ (NEGATIVE); BILIRUBIN, URINE AUTO NEGATIVE (NEGATIVE); BLOOD, URINE BLOOD NEGATIVE (NEGATIVE); COLOR, URINE YELLOW (YELLOW); GLUCOSE, URINE (UA) AUTO NEGATIVE (NEGATIVE); KETONE, URINE AUTO NEGATIVE (NEGATIVE); LEUKOCYTE ESTERASE, URINE AUTO 2+ (NEGATIVE); NITRITE, URINE AUTO NEGATIVE (NEGATIVE); PROTEIN, URINE AUTO NEGATIVE (NEGATIVE); RBC, URINE AUTO 12 /HPF (0-3); SPECIFIC GRAVITY URINE AUTO 1.017 (1.002-1.035); SQUAMOUS EPITHELIAL CELL UR AU 3 /HPF (0-6); UROBILINOGEN, URINE AUTO 0.2 mg/dL (0.0-2.0); WBC, URINE AUTO 60 /HPF (0-3)
--- NOTE | 2021-06-09 12:44 | REP ---
INDICATION: 5 weeks , vaginal bleeding. COMPARISON: None. TECHNIQUE: Ultrasound evaluation of the uterus was performed in multiple projections including color Doppler. FINDINGS: The uterus measures 7.9 x 5.4 cm. There is a gestational sac measuring 4.4 x 4.3 x 3.9 cm. The mean gestational sac size of 4.2 mm is consistent with expected GA/1st sono = 4 weeks 6 days. No pole, yolk sac or heart tones were detected. The right ovary measures 3.4 x 3.0 x 1.8 cm. The left ovary measures 2.6 x 2.5 x 2.3 cm, and contains a hemorrhagic cyst measuring 1.7 x 1.6 x 1.5 cm. IMPRESSION: Intrauterine with gestational sac size consistent with 4 weeks 6 days mean gestational age. No pole, yolk sac or heart tones were detected. <Electronically signed by Farhan Villa > 06/09/21 [id number]
[2021-06-09] MEDS ORDERED: MACR100C43 PO (12:49)
[2021-06-09 13:05] VITALS: BP 131/76
== END 2021-06-09 13:06 | disposition home or self-care (01) ==
LOC: M ED 09:33
DX: O46.91 Antepartum hemorrhage, unspecified, first trimester (principal); O23.41 Unspecified infection of urinary tract in pregnancy, first trimester; Z3A.01 Less than 8 weeks gestation of pregnancy; Z79.899 Other long term (current) drug therapy
CPT/HCPCS: 36415; 76801; 76817; 81001; 84702; 85025; 86850; 86900; 86901; 87086; 93976; 96372; 99284; J2790

== ENCOUNTER → 2021-07-13 | Outpatient (REF) | payer BC ==
[~2021-07-13] MED LIST changes: +MACR100C43 PO
[2021-07-13 14:56] LABS: GC DNA AMPLIFICATION NEGATIVE (NEGATIVE)
== END ==
LOC: M SFHCWAGY 13:11
PROVIDERS: ATTEND Obstetrics & Gynecology
DX: O34.211 Maternal care for low transverse scar from previous cesarean delivery (principal); Z3A.00 Weeks of gestation of pregnancy not specified

== ENCOUNTER → 2021-11-12 | Outpatient (CLI) | payer BC, OTHER ==
--- NOTE | 2021-11-12 12:51 | REP ---
INDICATION: F/U ANATOMY. COMPARISON: 06/09/2021. TECHNIQUE: Real-time sonographic evaluation of the gravid uterus performed. FINDINGS: Estimated gestational age is27 weeks 0 days, EDC 02/11/2022. Today's measurements indicate appropriate growth. Presentation: Transverse Placenta is anterior, grade 2, without evidence of placenta previa. heart rate is recorded at 139 beats per minute. Amniotic fluid is subjectively normal. Closed cervical length is measured at 5.3 cm. Biometry chart: BPD: 69 mm, 27 weeks 6 days, 68th percentile. HC: 268 mm, 29 weeks 2 days, over 95th percentile AC: 228 mm, 27 weeks 1 days, 54th percentile Femur length: 50 mm, 27 weeks 0 days, 50th percentile HC to AC ratio: 1.18, normal range 1.00-1.18. Estimated weight: 1064g, 53rd percentile. anatomy: Cranium: Grossly normal Lateral Ventricles/Choroid Plexus: Grossly normal Posterior Fossa/Cerebellum: Grossly normal Nose/lips/profile: Not well seen due to position Four chamber heart: Not well seen due to position Right ventricular outflow tract: Not well seen due to position Left ventricular outflow tract: Not well seen due to position Left-sided stomach: Grossly normal Kidneys: Grossly normal Bladder: Grossly normal Cord Insertion: Not well seen due to position 3 vessel cord: Not well seen due to position Spine: Grossly normal IMPRESSION: Viable single intrauterine gestation as above. <Electronically signed by Dontae Zepeda > 11/12/21 [id number]
== END ==
LOC: M WHC 09:15
PROVIDERS: ATTEND Advanced Practice Midwife
DX: Z36.9 Encounter for antenatal screening, unspecified (principal); Z3A.27 27 weeks gestation of pregnancy

== ENCOUNTER → 2021-11-28 | Outpatient (CLI) | payer BC, OTHER ==
[2021-11-28 10:21] LABS: HEMATOCRIT 32.3 % (36.0-47.0); MEAN CORPUSCULAR HEMOGLOBIN 26.7 pg (27.0-33.0); MEAN CORPUSCULAR VOLUME 86.4 fl (80.0-96.0); PLATELET COUNT, AUTOMATED 209 10^3/uL (150-450); RED BLOOD COUNT 3.74 10^6/uL (4.00-5.40); WHITE BLOOD COUNT 12.9 10^3/uL (4.0-10.0)
[2021-11-28 12:00] LABS: GC DNA AMPLIFICATION NEGATIVE (NEGATIVE)
== END ==
LOC: M PLALAB 08:01
PROVIDERS: ATTEND Advanced Practice Midwife
DX: Z36.9 Encounter for antenatal screening, unspecified (principal); Z3A.24 24 weeks gestation of pregnancy
CPT/HCPCS: 36415; 82950; 85027; 86850; 86900; 86901; 87810; 87850; J2790

== ENCOUNTER → 2021-12-03 | Outpatient (CLI) | payer BC, OTHER | LOC: M WHC 10:15 | PROVIDERS: ATTEND Obstetrics & Gynecology | DX: Z34.92 Encounter for supervision of normal pregnancy, unspecified, second trimester (principal); Z3A.24 24 weeks gestation of pregnancy ==

== ENCOUNTER → 2021-12-10 | Outpatient (CLI) | payer BC, OTHER ==
[~2021-12-10] MED LIST changes: +ACET325C5 PO; +FERR325T3 PO
== END ==
LOC: M LAB 09:27
PROVIDERS: ATTEND Advanced Practice Midwife
DX: O99.810 Abnormal glucose complicating pregnancy (principal); Z3A.00 Weeks of gestation of pregnancy not specified

== ENCOUNTER 2021-12-22 03:46 | Outpatient (CLI) | payer BC, OTHER ==
[~2021-12-22] VITALS: Ht 170.2 cm; Wt 148.0 kg
[~2021-12-22 03:46] MED LIST changes: -ACET325C5 PO; -FERR325T3 PO
[2021-12-22 04:19] VITALS: BP 134/82
[2021-12-22 04:48] VITALS: BP 140/82
[2021-12-22 05:58] VITALS: BP 125/90
[2021-12-22 06:04] LABS: CREATININE,RANDOM URINE 60.6 MG/DL; TOTAL PROTEIN,RANDOM URINE 19.3 MG/DL (0.0-12.0)
[2021-12-22 06:32] LABS: HEMATOCRIT 28.4 % (36.0-47.0); HEMOGLOBIN 9.1 g/dl (12.0-15.5); MEAN CORPUSCULAR HEMOGLOBIN 26.8 pg (27.0-33.0); MEAN CORPUSCULAR VOLUME 83.5 fl (80.0-96.0); PLATELET COUNT, AUTOMATED 187 10^3/uL (150-450); WHITE BLOOD COUNT 9.3 10^3/uL (4.0-10.0)
[2021-12-22 06:56] LABS: ALT/SGPT 15 U/L (12-78); BILIRUBIN,TOTAL 0.3 MG/DL (0.2-1.0); CREATININE FOR GFR 0.39 MG/DL (0.55-1.30); GLOMERULAR FILTRATION RATE > 60.0 (>60); LDH LACTATE DEHYDROGENASE 147 U/L (84-246); URIC ACID 4.6 MG/DL (2.6-6.0)
[2021-12-22] MEDS ORDERED: BETAMETHASONE SOLUSPAN 6MG/ML 5ML VIAL (J0702 PER 3MG) IM SCH (07:00)
[2021-12-22 07:08] VITALS: BP 142/79
[2021-12-22 08:02] VITALS: BP 142/63
[2021-12-22] MEDS: ACETAMINOPHEN 500 MG TAB PO ONE ×2 (08:07→08:08)
[2021-12-22] MEDS ORDERED: FERR325T3 PO (08:51)
[2021-12-22] MEDS ORDERED: ACET325C5 PO (08:51)
[2021-12-22] MEDS ORDERED: HOME MED LIST COMPLETE! XX SCH (08:55)
[2021-12-22 10:24] VITALS: BP 130/77
== END 2021-12-22 11:20 | disposition home or self-care (01) ==
LOC: M LDO 03:46
PROVIDERS: ATTEND Advanced Practice Midwife
DX: O26.893 Other specified pregnancy related conditions, third trimester (principal); O99.893 Other specified diseases and conditions complicating puerperium; H53.9 Unspecified visual disturbance; Z87.59 Personal history of other complications of pregnancy, childbirth and the puerperium; Z3A.32 32 weeks gestation of pregnancy
CPT/HCPCS: 36415; 59025; 82247; 82565; 82570; 83615; 84156; 84450; 84460; 84550; 85027; 96372; G0378; G0463; J0702

== ENCOUNTER 2021-12-23 07:37 | Outpatient (CLI) | payer BC, OTHER ==
[~2021-12-23 07:37] MED LIST changes: +ACET325C5 PO; +FERR325T3 PO
[2021-12-23] MEDS ORDERED: BETAMETHASONE SOLUSPAN 6MG/ML 5ML VIAL (J0702 PER 3MG) IM ONE (07:55)
[2021-12-23 08:14] VITALS: BP 135/69
== END 2021-12-23 08:40 | disposition home or self-care (01) ==
LOC: M LDO 07:37
PROVIDERS: ATTEND Specialist
DX: O26.893 Other specified pregnancy related conditions, third trimester (principal); Z87.59 Personal history of other complications of pregnancy, childbirth and the puerperium; Z3A.32 32 weeks gestation of pregnancy
CPT/HCPCS: 59025; 96372; G0378; G0463; J0702

== ENCOUNTER 2021-12-27 19:22 | Outpatient (CLI) | payer BC, OTHER ==
[~2021-12-27] VITALS: Ht 170.2 cm; Wt 148.7 kg
[2021-12-27 19:39] VITALS: BP 120/75
[2021-12-27] MEDS ORDERED: HOME MED LIST COMPLETE! XX SCH (19:55)
[2021-12-27 19:56] VITALS: BP 113/67
[2021-12-27 20:11] VITALS: BP 105/64
[2022-01-09] MEDS ORDERED: IRON27TA2 PO (13:44)
== END 2021-12-27 20:30 | disposition home or self-care (01) ==
LOC: M LDO 19:22
PROVIDERS: ATTEND Obstetrics & Gynecology
DX: O13.3 Gestational [pregnancy-induced] hypertension without significant proteinuria, third trimester (principal); Z3A.33 33 weeks gestation of pregnancy
CPT/HCPCS: 59025; G0378; G0463

== ENCOUNTER → 2022-01-07 | Outpatient (CLI) | payer BC, OTHER | LOC: M RAD 11:39 | PROVIDERS: ATTEND Obstetrics & Gynecology | DX: O13.3 Gestational [pregnancy-induced] hypertension without significant proteinuria, third trimester (principal); Z3A.35 35 weeks gestation of pregnancy ==

== ENCOUNTER → 2022-01-14 | Outpatient (REF) | payer BC, OTHER ==
[~2022-01-14] MED LIST changes: +IRON27TA2 PO
== END ==
LOC: M SFHCWAGY 17:39
PROVIDERS: ATTEND Obstetrics & Gynecology
DX: O34.211 Maternal care for low transverse scar from previous cesarean delivery (principal); Z3A.00 Weeks of gestation of pregnancy not specified

== ENCOUNTER → 2022-01-14 | Outpatient (CLI) | payer BC, OTHER | LOC: M RAD 10:03 | PROVIDERS: ATTEND Obstetrics & Gynecology | DX: O13.3 Gestational [pregnancy-induced] hypertension without significant proteinuria, third trimester (principal) ==

== ENCOUNTER → 2022-01-18 | Outpatient (CLI) | payer BC, OTHER | LOC: M LABSMTC 11:29 | PROVIDERS: ATTEND Anesthesiology | DX: Z01.812 Encounter for preprocedural laboratory examination (principal); Z20.822 Contact with and (suspected) exposure to COVID-19 ==

== ENCOUNTER → 2022-01-21 | Outpatient (CLI) | payer BC, OTHER ==
[~2022-01-21] MED LIST changes: +COLA100C5 PO
== END ==
LOC: M RAD 08:32
PROVIDERS: ATTEND Obstetrics & Gynecology
DX: O13.3 Gestational [pregnancy-induced] hypertension without significant proteinuria, third trimester (principal); Z3A.38 38 weeks gestation of pregnancy

== ENCOUNTER 2022-01-23 04:49 | Inpatient (IN) | payer BC, OTHER ==
[2022-01-23] VITALS (7 sets, daily range): BP systolic 111–143; BP diastolic 57–88
[~2022-01-23] VITALS: Ht 170.2 cm; Wt 151.5 kg
[~2022-01-23 04:49] MED LIST changes: -COLA100C5 PO
[2022-01-23] MEDS ORDERED: HOME MED LIST COMPLETE! XX SCH (05:45)
[2022-01-23] MEDS ORDERED: BICITRA 30ML SOLN UDC PO ONE (06:00)
[2022-01-23 06:06] LABS: HEMOGLOBIN 10.4 g/dl (12.0-15.5); MEAN CORPUSCULAR HEMOGLOBIN 25.7 pg (27.0-33.0); MEAN CORPUSCULAR HGB CONC 32.5 g/dl (32.0-36.5); MEAN CORPUSCULAR VOLUME 79.2 fl (80.0-96.0); PLATELET COUNT, AUTOMATED 185 10^3/uL (150-450); RED BLOOD COUNT 4.04 10^6/uL (4.00-5.40); WHITE BLOOD COUNT 10.7 10^3/uL (4.0-10.0)
[2022-01-23] MEDS ORDERED: LACTATED RINGER'S 1000 ML IV STA (07:13)
[2022-01-23] MEDS ORDERED: ceFAZolin SOD 3 GM IV Place Holder IV ONE (07:15)
[2022-01-23] MEDS ORDERED: LR 1,000 ML IV SCH ×2 (07:15→09:40)
[2022-01-23] MEDS ORDERED: ONDANSETRON 4MG/2ML VIAL As Ordered ONE (07:16)
[2022-01-23] MEDS ORDERED: MORPHINE PRES-FREE INJ 10 MG/10 ML VIAL (J2274) As Ordered ONE (07:16)
[2022-01-23] MEDS ORDERED: OXYTOCIN INJ 10 UNITS/ML VIAL (J2590) As Ordered ONE (07:16)
[2022-01-23] MEDS ORDERED: dexameTHASONE 4 MG/ML 1ML VIAL (J1100 PER 1MG) As Ordered ONE (07:16)
[2022-01-23] MEDS ORDERED: KETOROLAC 60MG 2ML VIAL As Ordered ONE (07:16)
[2022-01-23] MEDS ORDERED: ePHEDrine SULFATE 25 MG/5 ML(5MG/ML) SYRINGE As Ordered ONE (07:17)
[2022-01-23] MEDS ORDERED: PHENYLephrine 500MCG 5ML (100MCG/ML) SYRINGE As Ordered ONE (07:17)
[2022-01-23] MEDS ORDERED: OXYTOCIN 30 UNITS IN 0.9% NaCl 500ML IV BAG (J2590) As Ordered ONE ×2 (07:19→09:54)
[2022-01-23] MEDS ORDERED: ceFAZolin SOD 1 GM in D5W MINI-BAG PLUS 50 ML IV ONE (07:20)
[2022-01-23] MEDS ORDERED: ceFAZolin SOD 2 GM in IV 1 EA IV ONE (07:20)
[2022-01-23] MEDS ORDERED: LIDOCAINE 1% SDV 30ML VIAL As Ordered ONE (07:23)
[2022-01-23] MEDS ORDERED: BICITRA 30ML SOLN UDC As Ordered ONE (07:37)
[2022-01-23] MEDS ORDERED: ONDANSETRON 4MG/2ML VIAL IV PRN ×3 (08:08→09:40)
[2022-01-23] MEDS ORDERED: NALOXONE INJ 0.4MG/1ML VIAL (J2310 PER 1MG) IV PRN ×2 (08:08)
[2022-01-23] MEDS ORDERED: METOCLOPRAMIDE INJ 10MG/2ML VIAL (J2765 PER 1) IV PRN (08:08)
[2022-01-23] MEDS ORDERED: NALBUPHINE HCL 10 MG/ML AMP (J2300) IV PRN (08:08)
[2022-01-23] MEDS ORDERED: diphenhydrAMINE 50MG/ML VIAL (J1200) IV PRN (08:08)
[2022-01-23] MEDS ORDERED: PERCOCET 5MG/325MG TAB PO PRN (09:30)
[2022-01-23] MEDS ORDERED: OXYTOCIN DRIP 30 UNITS in IV 1 EA IV SCH (09:30)
[2022-01-23] MEDS ORDERED: SIMETHICONE 80MG CHEW TAB PO PRN (09:30)
[2022-01-23] MEDS ORDERED: RHOGAM 300 MCG (1500 IU) INJ (J2790) IM SCH (09:30)
[2022-01-23] MEDS ORDERED: MEASLES,MUMPS,RUBELLA VACCINE INJ (MMR-II) (90707) SC SCH (09:30)
[2022-01-23] MEDS ORDERED: IBUP80TA PO (09:37)
[2022-01-23] MEDS ORDERED: COLA100C5 PO (09:37)
[2022-01-23] MEDS ORDERED: PERCOCET PO (09:37)
[2022-01-23] MEDS ORDERED: fentaNYL 100 MCG/2 ML INJECTION IV PRN (09:40)
[2022-01-23] MEDS ORDERED: oxyCODONE 5MG TAB PO PRN (09:40)
[2022-01-23] MEDS: LR 1,000 ML IV SCH ×2 (09:58→17:35)
[2022-01-23] MEDS: DOCUSATE SODIUM 100MG CAPSULE PO SCH ×2 (10:01→21:56)
[2022-01-23] MEDS: PRENATAL VITAMINS CHEWABLE TABLET PO SCH (10:02)
[2022-01-23 10:04] LABS: HEMATOCRIT 31.4 % (36.0-47.0); HEMOGLOBIN 10.1 g/dl (12.0-15.5); MEAN CORPUSCULAR HGB CONC 32.2 g/dl (32.0-36.5); MEAN CORPUSCULAR VOLUME 80.9 fl (80.0-96.0); PLATELET COUNT, AUTOMATED 176 10^3/uL (150-450); RED BLOOD COUNT 3.88 10^6/uL (4.00-5.40); WHITE BLOOD COUNT 9.2 10^3/uL (4.0-10.0)
[2022-01-23 10:26] LABS: CREATININE FOR GFR 0.48 MG/DL (0.55-1.30); GLOMERULAR FILTRATION RATE > 60.0 (>60)
[2022-01-23] MEDS ORDERED: oxyCODONE 5MG TAB As Ordered ONE (10:30)
[2022-01-23] MEDS: KETOROLAC 30 MG/ML 1ML VIAL IV SCH ×2 (15:06→21:59)
[2022-01-23] MEDS: ENOXAPARIN 40MG/0.4ML SYRINGE (J1650 PER 10MG) SC SCH (15:06)
[2022-01-23] MEDS: PERCOCET 5MG/325MG TAB PO PRN (22:01)
[2022-01-24] MEDS: LR 1,000 ML IV SCH ×2 (01:30→09:30)
[2022-01-24 02:00] VITALS: BP 117/80
[2022-01-24] MEDS: ENOXAPARIN 40MG/0.4ML SYRINGE (J1650 PER 10MG) SC SCH ×2 (02:00→14:42)
[2022-01-24] MEDS: KETOROLAC 30 MG/ML 1ML VIAL IV SCH (03:07)
[2022-01-24 06:00] VITALS: BP 119/58
[2022-01-24 08:03] LABS: HEMATOCRIT 29.4 % (36.0-47.0); HEMOGLOBIN 9.2 g/dl (12.0-15.5); MEAN CORPUSCULAR HEMOGLOBIN 25.8 pg (27.0-33.0); MEAN CORPUSCULAR HGB CONC 31.3 g/dl (32.0-36.5); MEAN CORPUSCULAR VOLUME 82.4 fl (80.0-96.0); PLATELET COUNT, AUTOMATED 160 10^3/uL (150-450); RED BLOOD COUNT 3.57 10^6/uL (4.00-5.40); WHITE BLOOD COUNT 11.4 10^3/uL (4.0-10.0)
[2022-01-24 10:00] VITALS: BP 136/69
[2022-01-24] MEDS: DOCUSATE SODIUM 100MG CAPSULE PO SCH ×2 (10:24→22:08)
[2022-01-24] MEDS: PRENATAL VITAMINS CHEWABLE TABLET PO SCH (10:24)
[2022-01-24] MEDS: IBUPROFEN 800 MG TAB PO SCH ×2 (10:30→18:33)
[2022-01-24] MEDS: PERCOCET 5MG/325MG TAB PO PRN (10:30)
[2022-01-24 18:05] VITALS: BP 122/60
[2022-01-24] MEDS ORDERED: MOM 30ML SUSPENSION UDC PO ONE (20:45)
[2022-01-24 22:00] VITALS: BP 132/74
[2022-01-25 02:00] VITALS: BP 137/63
[2022-01-25] MEDS: ENOXAPARIN 40MG/0.4ML SYRINGE (J1650 PER 10MG) SC SCH (02:18)
[2022-01-25] MEDS: IBUPROFEN 800 MG TAB PO SCH ×2 (02:19→11:00)
[2022-01-25 05:59] VITALS: BP 138/62
[2022-01-25] MEDS: DOCUSATE SODIUM 100MG CAPSULE PO SCH (08:55)
[2022-01-25] MEDS: PRENATAL VITAMINS CHEWABLE TABLET PO SCH (08:55)
[2022-01-25] MEDS: PERCOCET 5MG/325MG TAB PO PRN (08:56)
== END 2022-01-25 13:00 | disposition home or self-care (01) | DRG 540 ==
LOC: M OBS 04:49 → M LDI 06:09 → M OBS 10:44
PROVIDERS: ADMIT Obstetrics & Gynecology; ATTEND Obstetrics & Gynecology
PROC: 10D00Z1 Extraction of Products of Conception, Low, Open Approach (ICD-10-PCS; principal; 2022-01-23 07:30)
DX: O13.4 Gestational [pregnancy-induced] hypertension without significant proteinuria, complicating childbirth (principal); Z68.43 Body mass index [BMI] 50.0-59.9, adult; E66.9 Obesity, unspecified; O99.214 Obesity complicating childbirth; O34.211 Maternal care for low transverse scar from previous cesarean delivery; Z37.0 Single live birth; Z3A.37 37 weeks gestation of pregnancy

== ENCOUNTER 2024-02-09 21:04 | Emergency (ER) | payer BC, OTHER ==
[2024-02-09 21:04] VITALS: BP 139/83; TEMP 97.8; O2SAT 97
[~2024-02-09 21:04] MED LIST changes: +COLA100C5 PO
== END 2024-02-09 21:21 | disposition left against medical advice (07) ==
LOC: M ED 21:04
DX: Z53.21 Procedure and treatment not carried out due to patient leaving prior to being seen by health care provider (principal)

== ENCOUNTER 2024-02-25 22:19 | Emergency (ER) | payer BC, MEDICAID ==
[~2024-02-25] VITALS: Ht 170.2 cm; Wt 114.7 kg
[2024-02-25 22:20] VITALS: BP 139/90; TEMP 98.8; O2SAT 100
[2024-02-25 22:52] LABS: BASO # 0.1 10^3/uL (0.0-0.2); BASO % 0.5 % (0.0-1.0); EOS # 0.3 10^3/uL (0.0-0.5); EOS % 2.7 % (0.0-3.0); HEMATOCRIT 36.2 % (36.0-47.0); HEMOGLOBIN 11.9 g/dl (12.0-15.5); LYMPH # 2.6 10^3/uL (1.5-5.0); LYMPH % 24.5 % (24.0-44.0); MEAN CORPUSCULAR HEMOGLOBIN 28.3 pg (27.0-33.0); MEAN CORPUSCULAR HGB CONC 32.9 g/dl (32.0-36.5); MEAN CORPUSCULAR VOLUME 86.2 fl (80.0-96.0); MONO # 0.8 10^3/uL (0.0-0.8); MONO % 7.1 % (2.0-8.0); NEUTROPHILS # 6.9 10^3/uL (1.5-8.5); NEUTROPHILS % 64.4 % (36.0-66.0); PLATELET COUNT, AUTOMATED 211 10^3/uL (150-450); WHITE BLOOD COUNT 10.7 10^3/uL (4.0-10.0)
[2024-02-25 23:24] LABS: BLOOD UREA NITROGEN 12 MG/DL (9-23); CALCIUM LEVEL 8.8 MG/DL (8.5-10.1); CARBON DIOXIDE LEVEL 29 MMOL/L (20-31); CHLORIDE LEVEL 104 MMOL/L (98-107); CREATININE FOR GFR 0.66 MG/DL (0.55-1.30); GLOMERULAR FILTRATION RATE > 60.0 (>60); GLUCOSE, FASTING 79 MG/DL (60-100); POTASSIUM SERUM 4.1 MMOL/L (3.5-5.1); SODIUM LEVEL 137 MMOL/L (136-145)
[2024-02-26 00:23] LABS: Trichomonas vaginalis (AMP) NOT DETECTED (NEGATIVE)
[2024-02-26 00:47] LABS: GC DNA AMPLIFICATION NEGATIVE (NEGATIVE)
== END 2024-02-26 02:27 | disposition left against medical advice (07) ==
LOC: M ED 22:19
DX: R10.2 Pelvic and perineal pain (principal); I10 Essential (primary) hypertension; F17.210 Nicotine dependence, cigarettes, uncomplicated; Z53.9 Procedure and treatment not carried out, unspecified reason

== ENCOUNTER → 2024-05-04 | Outpatient (CLI) | payer BC, MEDICAID | LOC: M WHC 12:11 | PROVIDERS: ATTEND Obstetrics & Gynecology | DX: Z34.93 Encounter for supervision of normal pregnancy, unspecified, third trimester (principal); Z23 Encounter for immunization; Z3A.28 28 weeks gestation of pregnancy ==

== ENCOUNTER → 2024-05-10 | Outpatient (CLI) | payer BC, MEDICAID | LOC: M WHC 15:43 | PROVIDERS: ATTEND Obstetrics & Gynecology | DX: O36.5930 Maternal care for other known or suspected poor fetal growth, third trimester, not applicable or unspecified (principal); O41.03X0 Oligohydramnios, third trimester, not applicable or unspecified; Z3A.29 29 weeks gestation of pregnancy; O32.1XX0 Maternal care for breech presentation, not applicable or unspecified ==

== ENCOUNTER → 2024-05-17 | Outpatient (CLI) | payer BC, MEDICAID | LOC: M WHC 14:35 | PROVIDERS: ATTEND Obstetrics & Gynecology | DX: O36.5930 Maternal care for other known or suspected poor fetal growth, third trimester, not applicable or unspecified (principal); O41.03X0 Oligohydramnios, third trimester, not applicable or unspecified; Z3A.30 30 weeks gestation of pregnancy ==

== ENCOUNTER 2024-05-27 15:15 | Outpatient (CLI) | payer BC, MEDICAID ==
[~2024-05-27] VITALS: Ht 170.2 cm; Wt 117.9 kg
[2024-05-27 16:34] VITALS: BP 123/74
[2024-05-27 17:41] VITALS: BP 132/76
[2024-05-27] MEDS ORDERED: HOME MED LIST COMPLETE! XX SCH (18:00)
[2024-05-27] MEDS: BETAMETHASONE SOLUSPAN 6MG/ML 5ML VIAL IM SCH (18:03)
[2024-05-27 20:20] VITALS: BP 140/81
[2024-05-27 20:36] VITALS: BP 141/76
[2024-05-27 21:45] LABS: LDH LACTATE DEHYDROGENASE 206 U/L (120-246)
[2024-05-27 21:46] LABS: ALT/SGPT 14 U/L (7.0-40); AST/SGOT 13 U/L (<34); BILIRUBIN,TOTAL 0.7 MG/DL (0.3-1.2); CREATININE FOR GFR 0.51 MG/DL (0.55-1.30); GLOMERULAR FILTRATION RATE > 60.0 (>60)
[2024-05-27 21:49] LABS: URIC ACID 6.5 MG/DL (3.1-7.8)
[2024-05-27 21:55] VITALS: BP 145/86
[2024-05-27 22:51] LABS: TOTAL PROTEIN,RANDOM URINE 13.5 MG/DL (0.0-14.0)
[2024-05-27 23:05] VITALS: BP 147/89
[2024-05-28] VITALS (9 sets, daily range): BP systolic 135–148; BP diastolic 62–88
== END 2024-05-28 18:08 | disposition home or self-care (01) ==
LOC: M LDO 15:15
PROVIDERS: ATTEND Obstetrics & Gynecology
DX: O36.5930 Maternal care for other known or suspected poor fetal growth, third trimester, not applicable or unspecified (principal); O41.03X9 Oligohydramnios, third trimester, other fetus; O26.893 Other specified pregnancy related conditions, third trimester; O34.219 Maternal care for unspecified type scar from previous cesarean delivery; O09.293 Supervision of pregnancy with other poor reproductive or obstetric history, third trimester; R03.0 Elevated blood-pressure reading, without diagnosis of hypertension; Z3A.31 31 weeks gestation of pregnancy
CPT/HCPCS: 36415; 59025; 76815; 76819; 76820; 82247; 82570; 83615; 84156; 84450; 84460; 84550; 96372; G0463; J0702

== ENCOUNTER → 2024-05-27 | Outpatient (CLI) | payer BC, MEDICAID | LOC: M WHC 12:44 | PROVIDERS: ATTEND Obstetrics & Gynecology | DX: O36.5930 Maternal care for other known or suspected poor fetal growth, third trimester, not applicable or unspecified (principal); O41.03X0 Oligohydramnios, third trimester, not applicable or unspecified; Z3A.31 31 weeks gestation of pregnancy ==

== ENCOUNTER → 2024-05-31 | Outpatient (CLI) | payer BC, MEDICAID | LOC: M PLALAB 14:16 | PROVIDERS: ATTEND Obstetrics & Gynecology | DX: O41.03X0 Oligohydramnios, third trimester, not applicable or unspecified (principal); Z3A.00 Weeks of gestation of pregnancy not specified | CPT/HCPCS: 86850; 86900; 86901; J2790 ==

== ENCOUNTER → 2024-06-02 | Outpatient (CLI) | payer BC, MEDICAID | LOC: M WHC 10:41 | PROVIDERS: ATTEND Obstetrics & Gynecology | DX: O36.5930 Maternal care for other known or suspected poor fetal growth, third trimester, not applicable or unspecified (principal); O41.03X0 Oligohydramnios, third trimester, not applicable or unspecified; Z3A.32 32 weeks gestation of pregnancy ==

== ENCOUNTER → 2024-06-10 | Outpatient (CLI) | payer BC, MEDICAID | LOC: M WHC 12:34 | PROVIDERS: ATTEND Obstetrics & Gynecology | DX: O36.5930 Maternal care for other known or suspected poor fetal growth, third trimester, not applicable or unspecified (principal); O41.03X0 Oligohydramnios, third trimester, not applicable or unspecified; Z3A.33 33 weeks gestation of pregnancy ==

== ENCOUNTER → 2024-06-16 | Outpatient (CLI) | payer BC, MEDICAID | LOC: M WHC 12:09 | PROVIDERS: ATTEND Obstetrics & Gynecology | DX: O36.5930 Maternal care for other known or suspected poor fetal growth, third trimester, not applicable or unspecified (principal); O41.03X0 Oligohydramnios, third trimester, not applicable or unspecified; Z3A.34 34 weeks gestation of pregnancy ==

== ENCOUNTER → 2024-06-23 | Outpatient (CLI) | payer BC, MEDICAID ==
[~2024-06-23] MED LIST changes: +LABE100T40 PO
== END ==
LOC: M RAD 15:11
PROVIDERS: ATTEND Obstetrics & Gynecology
DX: O36.5930 Maternal care for other known or suspected poor fetal growth, third trimester, not applicable or unspecified (principal); O41.03X0 Oligohydramnios, third trimester, not applicable or unspecified; Z3A.35 35 weeks gestation of pregnancy